=== PATIENT | female | born 1980 | race Caucasian/White ===

== ENCOUNTER 2019-08-05 16:58 | Emergency (ER) | payer OTHER ==
[2019-08-05 17:21] VITALS: BP 106/58
--- NOTE | 2019-08-05 17:49 | UC ---
Back Pain HPI - HPI Summary HPI Summary: 38 yo female with the onset of LBP radiating to left buttock that started this AM no bowel or bladder dysfunction no leg pain or weakness similar symptoms in past took 400mg of ibuprofen this AM - History of Current Complaint Chief Complaint: UCBackPain Stated Complaint: PINCHED NERVE Time Seen by Provider: 08/05/19 17:41 Hx Obtained From: Patient Hx Last Menstrual Period: 08/05/19 Onset/Duration: Gradual Onset, Lasting Hours Timing: Constant Severity Initially: Moderate Severity Currently: Moderate Pain Intensity: 7 Pain Scale Used: 0-10 Numeric Back Pain: Is Discrete @, Radiates To - left buttock Character: Sharp, Aching, Throbbing, Spasmodic - lower back Aggravating Factor(s): Movement, Bending Alleviating Factor(s): Rest Related History: Similar Episode Dx As - sciatica, Previous Back Injury - Allergies/Home Medications Allergies/Adverse Reactions: Allergies Allergy/AdvReac Type Severity Reaction Status Date / Time No Known Allergies Allergy Verified 08/05/19 17:15 Home Medications: Home Medications Amphetamine MIXED SALT TAB* [Adderall TAB*] 10 mg PO 1300 08/05/19 [History Confirmed 08/05/19] Amphetamine MIXED SALT TAB* [Adderall TAB*] 20 mg PO QAM 08/05/19 [History Confirmed 08/05/19] Ibuprofen TAB* [Advil TAB*] 400 mg PO Q6H PRN 08/05/19 [History Confirmed ] PMH/Surg Hx/FS Hx/Imm Hx Previously Healthy: Yes - Surgical History Surgical History: None - Family History Known Family History: Positive: Non-Contributory - Social History Alcohol Use: Weekly Substance Use Type: None Smoking Status (MU): Former Smoker Type: Cigarettes Length of Time of Smoking/Using Tobacco: 1/2 PPD x 10 Years When Did the Patient Quit Smoking/Using Tobacco: 2013 Review of Systems All Other Systems Reviewed And Are Negative: Yes Constitutional: Positive: Negative Skin: Positive: Negative Eyes: Positive: Negative ENT: Positive: Negative Respiratory: Positive: Negative Cardiovascular: Positive: Negative Gastrointestinal: Positive: Negative Genitourinary: Positive: Negative Musculoskeletal: Positive: Myalgia - lower back and left buttock Neurological: Positive: Negative, Headache Physical Exam Triage Information Reviewed: Yes Appearance: Well-Appearing, No Pain Distress, Well-Nourished Vital Signs: Initial Vital Signs Temp 98.2 F 08/05/19 17:13 Pulse 80 08/05/19 17:13 Resp 16 08/05/19 17:13 BP 106/58 08/05/19 17:13 Pulse Ox 99 08/05/19 17:13 Vital Signs Reviewed: Yes Eyes: Positive: Conjunctiva Clear ENT: Positive: Hearing grossly normal. Negative: Nasal congestion, Nasal drainage, Trismus, Hoarse voice Neck: Positive: Supple Respiratory: Positive: Lungs clear, Normal breath sounds, No respiratory distress, No accessory muscle use Cardiovascular: Positive: RRR, No Murmur Musculoskeletal: Positive: ROM Intact, No Edema Neurological: Positive: Alert Psychological Exam: Normal Skin Exam: Normal - Additional Comments neuro non focal, sensory and strength normal, DTRs brisk, neg SLR Back Pain Course/Dx - Differential Dx/Diagnosis Provider Diagnosis: Lumbar strain, Pyriformis syndrome Discharge ED - Sign-Out/Discharge Documenting (check all that apply): Patient Departure All imaging exams completed and their final reports reviewed: No Studies - Discharge Plan Condition: Stable Disposition: HOME Referrals: No Primary Care Phys,NOPCP [Primary Care Provider] - - Billing Disposition and Condition Condition: STABLE Disposition: Home
== END 2019-08-05 18:00 | disposition home or self-care (01) ==
LOC: UCCORT 16:58
DX: S39.012A Strain of muscle, fascia and tendon of lower back, initial encounter (principal); X58.XXXA Exposure to other specified factors, initial encounter; Y92.9 Unspecified place or not applicable; G57.00 Lesion of sciatic nerve, unspecified lower limb; Z87.891 Personal history of nicotine dependence
CPT/HCPCS: 99202; G0463